=== PATIENT | male | born 1980 | race Caucasian/White ===

== ENCOUNTER 2023-10-15 09:52 | Emergency (ER) | payer BC, SELFPAY ==
[2023-10-15] VITALS (33 sets, daily range): BP systolic 118–164; BP diastolic 79–98; PULSE 66–102; RESP 11–20; TEMP 36.8; O2SAT 96–100
--- NOTE | ~2023-10-15 | CT_ITS ---
EXAMINATION: CT brain wo con DATE: 10/15/2023 10:41 INDICATION: Dizziness TECHNIQUE: Computed tomography (CT) of the head was performed without intravenous contrast. The mA wa s adjusted according to patient size. Iterative reconstruction technique was employed. Exam dose: 60 5.33 mGy-cm total exam DLP. COMPARISON: None FINDINGS: No intracranial mass lesion or hemorrhage or cerebrovascular accident. No midline shift or mass effect. Normal workman-white matter differentiation. Normal ventricular size. No subdural or epidural hematoma. Orbital contents are unremarkable. No fracture or bone destruction of the cranial vault. The mastoid air cells and included paranasal sinuses are normally developed and aerated. IMPRESSION: Negative Reviewed, dictated and finalized at [facility]. Reviewed, dictated and finalized at [facility]. AGE REINSPECTOR IMPRESSION: Negative
--- NOTE | ~2023-10-15 | XR_ITS ---
XR chest 2V DATE: 10/15/2023 10:27 INDICATION: Chest pain. Dizziness. TECHNIQUE: PA and lateral views COMPARISON: None FINDINGS: Normal heart size. No hilar or mediastinal enlargement. No pulmonary infiltrate or consolid ation, pleural effusion or pulmonary vascular congestion or pneumothorax is detected. There is minimal thoracic levoscoliosis. IMPRESSION: No active cardiopulmonary disease Reviewed, dictated and finalized at [facility]. DREN'S BOOK AUTHOR
--- NOTE | 2023-10-15 09:53 | ECG_ITS ---
Measurements Intervals [place] Rate: 75 P: 71 [place]: 167 QRS: 57 QRSD: 124 T: 25 QT: 379 QTc: 425 Interpretive Statements SINUS RHYTHM RIGHT BUNDLE BRANCH BLOCK ABNORMAL ECG NO PREVIOUS ECG AVAILABLE FOR COMPARISON Electronically Signed On 10-15-2023 16:04:31 MOISTURE TESTER by Ranjan Villalobos D.O.
--- NOTE | 2023-10-15 09:59 | ED.CHESTPAIN ---
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 In the middle of the night started having retrosternal chest squeezing feeling at rest while lying down in bed 7/10, currently 4/10. Patient denies any aggravating or relieving factors for the dizziness or the chest pain. 's telling me that patient have cons of stress lately. History of hyperlipidemia, does not smoke, his mom had coronary stents and open-heart surgery at age 65. Related Data Allergies Allergy/AdvReac Type Severity Reaction Status Date / Time No Known Allergies Allergy Verified 10/15/23 10:07 Review of Systems Review of Systems: All systems reviewed & are unremarkable except as noted in HPI and below Exam Narrative: General appearance: Well-developed, well-nourished Skin: Normal color Head: Normocephalic, nontraumatic Eyes: Clear conjunctiva ENT: Oropharynx normal, ears normal, nose normal Neck: Supple, nontender Chest and respiratory: Airway patent, no respiratory distress, no accessory muscle use Heart: Regular rate/rhythm Abdomen: Soft, nontender, no organomegaly, quiet bowel sounds Vascular: Normal peripheral pulses, normal capillary refill. Musculoskeletal: Normal range of motion, nontender back Neurologic: Alert and oriented ?3, BUTTER FAT TESTER is normal as tested, no gross motor deficit Course Reevaluation(s) Reevaluation #1: CURRENTLY PATIENT DENYING ANY LIGHTHEADEDNESS, DIZZINESS OR CHEST PAIN. LAYING DOWN COMFORTABLE IN BED. Date: 10/15/23 Time: 14:58 Vital Signs Vital signs: Vital Signs Temperature 36.8 C 10/15/23 10:03 Pulse Rate 73 10/15/23 10:03 Respiratory Rate 16 10/15/23 10:03 Blood Pressure 164/98 H 10/15/23 10:03 Pulse Oximetry 100 10/15/23 10:03 Oxygen Delivery Room Air 10/15/23 10:03 Temperature 36.8 C 10/15/23 10:03 Pulse Rate 74 10/15/23 13:54 Respiratory Rate 16 10/15/23 13:54 Blood Pressure 124/82 10/15/23 13:54 Pulse Oximetry 97 10/15/23 13:54 Oxygen Delivery Room Air 10/15/23 10:08 MDM - Chest Pain MDM Narrative Medical decision making narrative: PATIENT PRESENTS WITH LIGHTHEADEDNESS, DIZZINESS, P HOURS LATER STARTED HAVING CHEST PAIN. 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 VITAL SIGNS ARE STABLE, PHYSICAL EXAMINATION UNREMARKABLE, DIFFERENTIAL DIAGNOSIS CORONARY ARTERY DISEASE, PNEUMONIA, PLEURISY, MUSCULOSKELETAL, STRESS RELATED SYMPTOMS. BLOOD WORKUP TODAY INCLUDING 1ST AND 2ND TROPONIN ARE NEGATIVE, EKG ON ARRIVAL AND 3 HOURS LATER SHOWED NO ACUTE CHANGES, CHEST X-RAY SHOWED NO ACUTE CHANGES. STRESS INDUCED CHEST PAIN IS MY CONCERN. IN THE ED PATIENT RECEIVED ASPIRIN AND ATIVAN WAS REMARKABLE IMPROVEMENT. PATIENT WAS ADVISED TO FOLLOW UP WITH FAMILY PHYSICIAN FOR FURTHER EVALUATION AND POSSIBLE ANTI DEPRESSION MEDICATIONS. Differential Diagnosis Differential diagnosis: Likely other ( ABOVE) Medical Records Data Attestation: I reviewed the patient's medical records. Lab Data Attestation: I reviewed the patient's lab results. 10/15/23 10:02 10/15/23 10:02 Labs: Lab Results 10/15/23 10/15/23 10/15/23 Range/Units 10:02 10:31 13:00 WBC 10.1 H (4.5-10.0) K/mm3 RBC 5.42 (4.6-6.20) M/mm3 Hgb 16.6 (14.0-18.0) g/dL Hct 49.4 (42.0-52.0) % MCV 9
[2023-10-15 10:10] LABS: Basophils Percent Auto 0.3 % (0.2-1.2); Eosinophils Absolute Auto 0.1 K/mm3 (0-0.3); Eosinophils Percent Auto 0.9 % (0-4.4); Hematocrit 49.4 % (42.0-52.0); Hemoglobin 16.6 g/dL (14.0-18.0); Immature Granulocyte Absolute 0.02 K/mm3 (0.00-0.031); Immature Granulocyte Percent A 0.2 % (0-0.5); Lymphocytes Absolute Auto 2.45 K/mm3 (0.9-3.2); Lymphocytes Percent Auto 24.2 % (18.3-44.2); Mean Corpuscular HGB Conc 33.6 g/dl (32-36); Mean Corpuscular Hemoglobin 30.6 pg (26-34); Mean Corpuscular Volume 91.1 fl (80-100); Mean Platelet Volume 9.9 fl (7.4-10.4); Monocytes Absolute Auto 0.8 K/mm3 (0.1-0.6); Monocytes Percent Auto 7.4 % (2.6-8.5); Neutrophils Absolute Auto 6.8 K/mm3 (1.3-6.7); Platelet Count Result 332 k/mm3 (150-375); Red Blood Count 5.42 M/mm3 (4.6-6.20); Red Cell Distribution Width 12.1 % (11.5-14.5); White Blood Count 10.1 K/mm3 (4.5-10.0)
[2023-10-15 10:25] LABS: Alanine Aminotransferase 78 U/L (6-50); Albumin Level 4.9 g/dL (3.5-5.1); Alkaline Phosphatase 71 U/L (38-126); Anion Gap 10 mmol/L (8-16); Aspartate Amino Transferase 49 U/L (17-59); Bilirubin,Total 2.4 mg/dL (0.2-1.3); Blood Urea Nitrogen 9 mg/dL (9-20); Calcium 9.3 mg/dL (8.4-10.2); Carbon Dioxide 27 mmol/L (22-30); Chloride 105 mmol/L (98-107); Estimated CRCL calculation 108 ml/min; Estimated Glomerular Filt Rate > 60; Glucose 116 mg/dL (65-110); Lipase 71 U/L (23-300); Partial Thromboplastin Time 34.3 SECONDS (22.3-36.8); Potassium 3.9 mmol/L (3.4-5.0); Prothrombin Time 13.1 Seconds (11.1-14.7); Sodium 142 mmol/L (137-145)
[2023-10-15 10:36] LABS: Troponin I < 0.012 ng/mL (0.000-0.034)
[2023-10-15] MEDS: ASPIRIN 81 MG CHEWABLE TABLET 324 MG PO (10:47)
[2023-10-15] MEDS: LORazepam (*CRX) 0.5 MG TABLET 1 MG PO (10:47)
[2023-10-15 11:11] LABS: Influenza A QL RT-PCR Negative (Negative); Influenza B QL RT-PCR Negative (Negative); RSV RNA, RT-PCR Negative (Negative); SARS-CoV-2 RNA PCR Negative (Negative)
[2023-10-15 13:29] LABS: Troponin I < 0.012 ng/mL (0.000-0.034)
--- NOTE | 2023-10-15 14:28 | ECG_ITS ---
Measurements Intervals [place] Rate: 73 P: 28 [place]: 160 QRS: 37 QRSD: 128 T: 0 QT: 386 QTc: 427 Interpretive Statements SINUS RHYTHM RIGHT BUNDLE BRANCH BLOCK ABNORMAL ECG COMPARED TO ECG 10/15/2023 10:08:01 NO SIGNIFICANT CHANGES Electronically Signed On 10-15-2023 16:15:24 VETERINARY EPIDEMIOLOGIST by Ranjan Villalobos D.O.
== END 2023-10-15 14:58 | disposition home or self-care (01) ==
PROVIDERS: Emergency Provider Emergency Medicine; PCP Family Medicine
DX: R07.9 Chest pain, unspecified (principal); Z20.822 Contact with and (suspected) exposure to COVID-19
CPT/HCPCS: 36415; 70450; 71046; 80053; 83690; 84484; 85025; 85610; 85730; 87637; 93005; 99284; A9270